=== PATIENT | male | born 1990 | race Caucasian/White ===

== ENCOUNTER 2025-04-21 17:03 | Inpatient (IN) | payer OTHER ==
[2025-04-21 17:26] VITALS: BMI 31.4
[2025-04-21] MEDS ORDERED: BENZONATATE 200 MG CAPSULE PO PRN (18:20)
[2025-04-21] MEDS ORDERED: NALOXONE (NARCAN) HCL 4 MG/0.1 ML SPRAY NS PRN (18:20)
[2025-04-21] MEDS ORDERED: LOPERAMIDE HCL 2 MG CAPSULE PO PRN (18:20)
[2025-04-21] MEDS ORDERED: guaiFENesin 600 MG TABLET.ER (FP) PO PRN (18:20)
[2025-04-21] MEDS ORDERED: MAG HYDROX/AL HYDROX/SIMETH 30 ML UNIT-DOSE CUP PO PRN (18:20)
[2025-04-21] MEDS ORDERED: POLYETHYLENE GLYCOL (HEALTHYLAX) 3350 17 GM PACKET PO PRN (18:20)
[2025-04-21] MEDS: TUBERCULIN PPD 5 TU/0.1ML SYRINGE (IN PATIENT USE ONLY) ID ONE (22:34)
[2025-04-21] MEDS: MELATONIN 5 MG TABLETS PO SCH (22:34)
[2025-04-21] MEDS: THIAMINE 100 MG TABLET PO SCH (22:34)
[2025-04-22 06:49] LABS: URINE APPEARANCE CLEAR; URINE BILIRUBIN NEGATIVE (NEGATIVE); URINE COLOR YELLOW; URINE GLUCOSE (UA) NEGATIVE (NEGATIVE); URINE KETONE TRACE (NEGATIVE); URINE LEUK ESTERASE NEGATIVE (NEGATIVE); URINE NITRITE NEGATIVE (NEGATIVE); URINE PROTEIN NEGATIVE (NEGATIVE); URINE UROBILINOGEN 0.2 mg/dL (0.2-1.0)
[2025-04-22] MEDS: PRENATAL VITAMINS W/ FOLIC ACID TABLET (FP) PO SCH (10:18)
[2025-04-22 10:51] LABS: MCHC 33.2 g/dl (32.3-36.5); MEAN CELL VOLUME 88.9 fl (79.0-92.2); MEAN PLT VOLUME 9.9 fl (9.4-12.4); RDW 13.8 % (12.0-15.6)
[2025-04-22 11:09] LABS: CO2 28 mmol/L (21-32); GLUCOSE,RANDOM 102 mg/dL (74-106)
[2025-04-22 11:12] LABS: CREATININE 0.9 mg/dL (0.55-1.3); SGOT/AST 15 U/L (15-37); SGPT/ALT 27 U/L (13-61)
[2025-04-22 11:13] LABS: TOT PROT 7.0 g/dl (6.4-8.2)
[2025-04-22 11:15] LABS: ALK PHOS 70 U/L (45-117)
[2025-04-22 11:42] LABS: SYPHILIS W/ RPR CONF NON-REACTIVE (NONREACTIVE)
[2025-04-22 12:11] LABS: HCV DIAGNOSTIC IN-HOUSE W/RFLX NON-REACTIVE (NONREACTIVE)
[2025-04-22] MEDS: GABAPENTIN 100 MG CAPSULE PO SCH (13:33)
[2025-04-22] MEDS: ESCITALOPRAM OXALATE 20 MG TABLET PO SCH (13:34)
[2025-04-22] MEDS: MELATONIN 5 MG TABLETS PO SCH (21:37)
[2025-04-23] MEDS: NICOTINE POLACRILEX 2 MG GUM BUC PRN (10:28)
[2025-04-24] MEDS: BENZOCAINE/MENTHOL (CHLORASEPTIC ) LOZENGE MM PRN (06:28)
[2025-04-24] MEDS: MAGNESIUM HYDROX 2400MG/30ML ORAL SUSPENSION 30 ML CUP PO PRN (13:27)
[2025-04-25] MEDS: hydrOXYzine PAMOATE 25 MG CAPSULE (FP) PO PRN (21:08)
[2025-04-29] MEDS: ACETAMINOPHEN 325 MG TABLET (FP) PO PRN (06:14)
[2025-04-29] MEDS: GABAPENTIN 300 MG CAPSULE PO SCH (21:31)
[2025-04-30] MEDS: NICOTINE POLACRILEX 4 MG GUM BUC PRN (05:52)
[2025-05-10 06:48] VITALS: BP 133/60; PULSE 65; RESP 16; TEMP 97.5
== END 2025-05-10 10:30 | disposition home or self-care (01) | DRG 772 ==
LOC: YASAS 17:03 → Y3NR 18:38 → Y5N 04-22 12:37
PROVIDERS: ADMIT Psychiatry & Neurology Pain Medicine; ATTEND Family Medicine Addiction Medicine
PROC: HZ42ZZZ Group Counseling for Substance Abuse Treatment, Cognitive-Behavioral (ICD-10-PCS; principal; 2025-04-21)
DX: F10.20 Alcohol dependence, uncomplicated (principal); F14.20 Cocaine dependence, uncomplicated; F17.210 Nicotine dependence, cigarettes, uncomplicated
CPT/HCPCS: 36415; 71046-TC-FY; 80053; 80307; 81003; 85027; 86780; 86803; 93005; 93010